=== PATIENT | female | born 1985 | race Caucasian/White ===

== ENCOUNTER 2024-11-14 09:28 | Outpatient (CLI) | payer MEDICAID ==
--- NOTE | 2024-11-14 12:42 | RADIOLOGY REPORT ---
INDICATION: EXCESSIVE AND FREQUENT MENSTRUATION WITH REGULAR CYCLE TECHNIQUE: Multiple real-time grayscale transabdominal sonographic images along with color and duplex Doppler of the uterus and ovaries were obtained. COMPARISON: None FINDINGS: The uterus measures 10 x 5 x 6 cm. The endometrial stripe measures 0.9cm. The right ovary measures 3 x 2 x 3 cm. The left ovary measures 3 x 2 x 3 cm. Subsequent color and duplex Doppler interrogation of the ovaries demonstrated symmetric vascular flow to both ovaries, though this does not exclude the possibility of torsion due to the dual blood suppl y. IMPRESSION: 1. Multiple fibroids measuring up to 3 cm. MRI with IV contrast recommended.
== END 2024-11-14 23:59 | disposition home or self-care (01) ==
LOC: RAD 09:28
PROVIDERS: ATTEND Nurse Practitioner Family
DX: D25.9 Leiomyoma of uterus, unspecified (principal); N92.0 Excessive and frequent menstruation with regular cycle
CPT/HCPCS: 76830; 76856; 93976